=== PATIENT | male | born 1955 | race Caucasian/White ===

== ENCOUNTER 2023-02-17 13:04 | Emergency (ER) | payer MEDICARE ==
[2023-02-17 13:19] VITALS: BP 163/100; O2SAT 99
--- NOTE | 2023-02-17 13:40 | XRAY Report ---
PROCEDURE: Chest 1V INDICATIONS: Chest pain TECHNIQUE: One view of the chest was acquired. COMPARISON: None. FINDINGS: Surgical changes and devices: Partially visualized cervical spine hardware. Lungs and pleura: No pleural effusions or pneumothorax. Lungs are clear. Mediastinum: Mediastinal contours appear normal. Heart size is normal. Bones and chest wall: No suspicious bony lesions. Overlying soft tissues appear unremarkable. IMPRESSION: No acute cardiopulmonary process. Reviewed by: Verena Butts MD on 02/17/2023 1:39 PM PST Approved by: Verena Butts MD on 02/17/2023 1:39 PM PST Station ID: [id number]
--- NOTE | 2023-02-17 13:53 | ED Physician Documentation ---
PD HPI CHEST PAIN - Stated complaint Stated Complaint: HIGH HR - Chief complaint Chief Complaint: Cardiac - History obtained from History obtained from: Patient - History of Present Illness Timing - onset: How many months ago (2) Timing - onset during: Rest, Light activity. No: Exertion Timing - duration: Minutes, Hours Timing - details: Abrupt onset, Now resolved, Intermittant (he has had feeling of "heart jumping out of my chest" intermittently over past couple months. History of atrial fib in past with cardioversion 3 times. [place] dbeen on Xarelto and Metoprolol in past, but had been out of med and not taking/renewing for past 3-4 months. 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 No: Nausea, Vomiting, Feeling faint / dizzy, Cough Similar symptoms before: Diagnosis (he states feels similar to episodes of atrial fib he had had in the past.) Recently seen: Not recently seen Review of Systems Constitutional: denies: Fever, Chills Nose: denies: Rhinorrhea / runny nose, Congestion Throat: denies: Sore throat Cardiac: denies: Pedal edema, Calf pain Respiratory: denies: Cough GI: denies: Vomiting, Diarrhea Neurologic: denies: Generalized weakness, Near syncope PD PAST MEDICAL HISTORY - Past Medical History Past Medical History: Yes Cardiovascular: Hypertension, Atrial fibrillation - Past Surgical History Past Surgical History: Yes Ortho: Hip replacement, Spine surgery - Present Medications Home Medications: Ambulatory Orders Medication Instructions Recorded Confirmed Metoprolol Succinate [Toprol Xl] 50 mg PO DAILY 30 Days #30 tablet 02/17/23 Rivaroxaban [Xarelto] 20 mg PO DAILY 30 Days #30 tablet 02/17/23 - Allergies Allergies/Adverse Reactions: Allergies Allergy/AdvReac Type Severity Reaction Status Date / Time No Known Drug Allergies Allergy Verified 02/17/23 13:14 - Living Situation Living Situation: reports: Alone Living Arrangement: reports: At home - Social History Does the pt smoke?: No Smoking Status: Never smoker Does the pt drink ETOH?: No 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.) Does the pt have substance abuse?: No PD ED PE NORMAL - Vitals Vital signs reviewed: Yes - General General: Alert and oriented X 3, No acute distress, Well developed/nourished - Neck Neck: Supple, no meningeal sign, No adenopathy, Thyroid normal - Cardiac Cardiac: RRR, No murmur - Respiratory Respiratory: No respiratory distress, Clear bilaterally - Abdomen Abdomen: Soft, Non tender - Derm Derm: Normal color, Warm and dry - Extremities Extremities: No edema, No calf tenderness / cord - Neuro Neuro: Alert and oriented X 3, No motor deficit, Normal speech Results - Vitals Vitals: Vital Signs - 24 hr 02/17/23 02/17/23 13:10 13:14 Temperature 36.4 C L 36.5 C Heart Rate 88 88 Respiratory 18 18 Rate Blood Pressure 163/100 H 163/100 H O2 Saturation 99 99 Oxygen O2 Source Room air - EKG (time done) 13:16 EKG releavant findings:: EKG personally interpreted by author of this note. Relevant findings are: Rate: Rate (enter#) (75) Rhythm: NSR [place]: Normal Intervals: Normal VA, RBBB QRS: Normal Ischemia: Normal ST segments. No: ST elevation c/w ischemia, ST depression Compare to prior EKG: Old EKG unavailable - Labs Labs: Laboratory Tests 02/17/23 13:58 Sodium 138 Potassium 3.8 Chloride 106 Carbon Dioxide 24 Anion Gap 8.0 BUN 17 Creatinine 0.9 Estimated GFR (MDRD) 84 L Glucose 87 Calcium 9.6 Magnesium 1.9 Total Bilirubin 0.5 AST 18 ALT 14 Alkaline Phosphatase 87 Total Protein 7.9 Albumin 4.8 Globulin 3.1 Albumin/Globulin Ratio 1.5 Lipase 23 TSH 1.70 - Rads (name of study) chest xray Relevant Findings:: Prelim report reviewed, EMP independent interpretation of test (no acute process) PD Medical Decision Making - ED course Complexity details: reviewed results (ECG showing normal sinus rhythm now. CXR clear. Lytes are good. He does not drink alcohol. Only one coffee daily. 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 Can resume his meds and f/u Cardiology. ), considered differential (he is feeling intermittent episodes of atrial fib c/w prior known episodes. Has not been on meds for few months. Can resume Metoproool and xarelto that he had been on. Checked lytes and renal function labs, which are in normal range. TSH is normal. ), d/w patient Departure - Departure Disposition: 01 Home, Self Care Clinical Impression: Paroxysmal atrial fibrillation Condition: Stable Record reviewed to determine appropriate education?: Yes Instructions: ED Afib Prescriptions: Metoprolol Succinate [Toprol Xl] 50 mg PO DAILY 30 Days #30 tablet Rivaroxaban [Xarelto] 20 mg PO DAILY 30 Days #30 tablet Comments: Your EKG shows you are not in fibrillation right now. You are in a regular rhythm. By your description it sounds like you are in and out of the atrial fibrillation that you have had in the past. It would make sense to be back on the medication you had been on previously of the metoprolol and the Xarelto prescribed by your mortising machine operator. I wrote prescriptions for these and sent him to the [facility] pharmacy in [place]. Call your cardiology office and set up a follow-up appointment. Follow-up with your primary care as well. Your basic blood test here of electrolytes and thyroid screen, blood sugar and kidney function are good. Your liver enzymes are normal as well and so we you would not have any abnormalities of the ammonia or such as the bilirubin would need to be elevated for that. Stay well-hydrated. Minimal caffeine. Return if persistent symptoms that lasts more than several hours or so. Forms: PCP List Discharge Date/Time: 02/17/23 15:05
[2023-02-17 14:16] LABS: ALBUMIN 4.8 g/dL (3.2-5.5); ALBUMIN/GLOBULIN RATIO 1.5 (1.0-2.2); BILIRUBIN,TOTAL 0.5 mg/dL (0.2-1.0); CALCIUM 9.6 mg/dL (8.5-10.3); CREATININE 0.9 mg/dL (0.6-1.3); MAGNESIUM 1.9 mg/dL (1.7-2.3); POTASSIUM 3.8 mmol/L (3.5-4.5); TOTAL PROTEIN 7.9 g/dL (6.4-8.9)
[2023-02-17 14:31] LABS: THYROID STIMULATING HORMONE 1.7 uIU/mL (0.34-5.60)
[2023-02-17] MEDS ORDERED: METOPROLOL TARTRATE 50 MG TABLET PO STA (14:32)
== END 2023-02-17 15:05 | disposition home or self-care (01) ==
LOC: ED 13:04
DX: I48.0 Paroxysmal atrial fibrillation (principal); Z91.148 Patient's other noncompliance with medication regimen for other reason
CPT/HCPCS: 36415; 71045; 80053; 83690; 83735; 84443; 93005; 99283; 99284; A9270; 84484; 85025